=== PATIENT | female | born 1965 | race Two or more races ===

== ENCOUNTER 2018-10-28 14:42 | Inpatient (IN) | payer BC ==
[~2018-10-28] VITALS: Ht 167.6 cm; Wt 132.4 kg
[2018-10-28] MEDS ORDERED: ASPIRIN 325MG EC TABLET PO ONE (16:00)
[2018-10-28] MEDS ORDERED: SODIUM CHLORIDE 0.9% 1,000 ML IV ONE (16:06)
[2018-10-28 16:10] LABS: BASOPHILS % 0.6 % (0.0-2.0); EOSINOPHILS % 0.7 % (0.0-5.0); HEMATOCRIT. 35.9 % (36.0-48.0); HEMOGLOBIN. 11.6 g/dL (12.0-16.0); LYMPHOCYTES % 10.1 % (20.0-50.0); MEAN CORPUSCULAR HEMOGLOBIN 28.4 pg (28.0-32.0); MEAN CORPUSCULAR VOLUME 87.9 fL (81.0-99.0); MEAN PLATELET VOLUME 10.3 fl (7.4-10.4); MONOCYTES % 4.1 % (2.0-8.0); NEUTROPHILS % 84.5 % (40.0-76.0); PLATELET 146 x1000/uL (130-400); RED BLOOD CELL COUNT 4.08 mill/uL (4.2-5.4); RED CELL DISTRIBUTION WIDTH 14.7 % (11.6-14.6)
[2018-10-28 16:12] LABS: CHLORIDE 102 mEq/L (98-107)
[2018-10-28] MEDS ORDERED: IOHEXOL-350 100 ML BOTTLE ONE (17:08)
[2018-10-28] MEDS ORDERED: HEPARIN 5000 UNITS/ML VIAL IV ONE (17:15)
[2018-10-28] MEDS ORDERED: HEPARIN 25,000 UNITS PREMIX 500 ML IV ONE (17:15)
[2018-10-28] MEDS ORDERED: ONDANSETRON HCL 4MG/2ML INJ IV STA (17:18)
[2018-10-28 17:58] LABS: PARTIAL THROMBOPLASTIN TIME 24.5 sec (23.4-31.0); PROTHROMBIN TIME 10.4 sec (9.1-11.1)
[2018-10-28] MEDS ORDERED: HEPARIN 80 UNITS/KG BOLUS IV SCH (18:15)
[2018-10-28] MEDS ORDERED: HEPARIN BOLUS PRN aPTT 37-44 IV ×2 (18:15→18:39)
[2018-10-28] MEDS ORDERED: HEPARIN BOLUS PRN aPTT <36 IV ×2 (18:15→18:38)
[2018-10-28] MEDS ORDERED: HEPARIN 25,000 UNITS PREMIX 500 ML IV SCH ×2 (18:15)
[2018-10-28] MEDS ORDERED: MAGNESIUM/ALUMINUM HYDROXIDE/SIMETHICONE 30ML UDC PO PRN (20:15)
[2018-10-28] MEDS ORDERED: DOCUSATE SODIUM 100MG CAPSULE PO PRN (20:15)
[2018-10-28] MEDS ORDERED: DEXTROSE 50% WATER 50ML SYRINGE IV PRN (20:15)
[2018-10-28] MEDS ORDERED: IPRATROPIUM/ALBUTEROL 0.5-3(2.5)MG/3ML NEB INH PRN (20:15)
[2018-10-28] MEDS ORDERED: ACETAMINOPHEN 325MG TABLET PO PRN (20:15)
[2018-10-28] MEDS ORDERED: ACETAMINOPHEN 650MG SUPP PR PRN (20:15)
[2018-10-28] MEDS ORDERED: ACETAMINOPHEN 650MG/20.3ML UDC GT PRN (20:15)
[2018-10-28] MEDS ORDERED: ONDANSETRON HCL 4MG/2ML INJ IV PRN (20:15)
[2018-10-28] MEDS ORDERED: CLONIDINE 0.1MG TABLET PO PRN (20:15)
[2018-10-28] MEDS ORDERED: GUAIFENESIN 200MG/10ML SUGAR FREE UDC PO PRN (20:15)
[2018-10-28] MEDS ORDERED: HYDROCODONE/ACETAMINOPHEN 5/325MG TABLET PO PRN (20:15)
[2018-10-28] MEDS ORDERED: HYDROCODONE/ACETAMINOPHEN 10/325MG TABLET PO PRN (20:15)
[2018-10-28] MEDS ORDERED: SODIUM CHLORIDE 0.9% INJ 3ML FLUSH IVF SCH (22:00)
[2018-10-28] MEDS: BLOOD SUGAR DIAGNOSTIC STRIP TEST SCH (22:04)
[2018-10-28] MEDS: INSULIN LISPRO 100 UNITS/ML SUBCUT SCH (22:10)
[2018-10-29 00:04] LABS: CREATINE KINASE MB FRACTION 1.7 ng/mL (0.5-3.6)
[2018-10-29] MEDS ORDERED: PIOG30TA70 MT (00:16)
[2018-10-29] MEDS ORDERED: ATOR20TA65 MT (00:16)
[2018-10-29] MEDS ORDERED: METF-416 MT (00:16)
[2018-10-29] MEDS ORDERED: DYZ MT (00:17)
[2018-10-29 00:36] LABS: INR 1.1; PARTIAL THROMBOPLASTIN TIME 47.5 sec (23.4-31.0); PROTHROMBIN TIME 10.7 sec (9.1-11.1)
[2018-10-29 01:46] LABS: CLARITY URINE CLOUDY (CLEAR); COLOR URINE YELLOW (YELLOW); KETONES URINE 1+ (NEGATIVE); LEUKOCYTE ESTERASE URINE NEGATIVE (NEGATIVE); NITRITE URINE NEGATIVE (NEGATIVE); OCCULT BLOOD URINE NEGATIVE (NEGATIVE); PROTEIN URINE TRACE (NEGATIVE); SPECIFIC GRAVITY URINE 1.055 (1.005-1.030)
[2018-10-29 06:19] LABS: EOSINOPHILS % 0.4 % (0.0-5.0); HEMATOCRIT. 34.9 % (36.0-48.0); HEMOGLOBIN. 11.6 g/dL (12.0-16.0); LYMPHOCYTES % 19.1 % (20.0-50.0); MEAN CORPUSCULAR HEMOGLOBIN 28.7 pg (28.0-32.0); MEAN CORPUSCULAR VOLUME 86.7 fL (81.0-99.0); MEAN PLATELET VOLUME 10.4 fl (7.4-10.4); MONOCYTES % 5.1 % (2.0-8.0); NEUTROPHILS % 74.4 % (40.0-76.0); PLATELET 143 x1000/uL (130-400); RED BLOOD CELL COUNT 4.03 mill/uL (4.2-5.4); RED CELL DISTRIBUTION WIDTH 14.6 % (11.6-14.6)
[2018-10-29 06:24] LABS: CHLORIDE 105 mEq/L (98-107)
[2018-10-29 06:29] LABS: PARTIAL THROMBOPLASTIN TIME 47.8 sec (23.4-31.0); PROTHROMBIN TIME 10.5 sec (9.1-11.1)
[2018-10-29 06:39] LABS: LDL CHOLESTEROL 124 mg/dL (5-100)
[2018-10-29 06:40] LABS: CREATINE KINASE 96 IU/L (26-192)
[2018-10-29 06:41] LABS: HDL CHOLESTEROL 41 mg/dL (40-59)
[2018-10-29 06:43] LABS: CREATINE KINASE MB FRACTION 1.9 ng/mL (0.5-3.6)
[2018-10-29] MEDS: BLOOD SUGAR DIAGNOSTIC STRIP TEST SCH ×3 (10:10→17:42)
[2018-10-29] MEDS: INSULIN LISPRO 100 UNITS/ML SUBCUT SCH ×3 (10:15→18:26)
[2018-10-29] MEDS: APIXABAN 5 MG TABLET PO SCH (17:21)
[2018-10-29 17:47] LABS: T4 FREE 1.62 ng/dL (0.76-1.46)
[2018-10-29 19:44] LABS: CREATINE KINASE MB FRACTION 1.5 ng/mL (0.5-3.6)
[2018-10-29 23:10] LABS: CREATINE KINASE MB FRACTION 1.2 ng/mL (0.5-3.6)
[2018-10-30] MEDS: INSULIN LISPRO 100 UNITS/ML SUBCUT SCH ×3 (07:12→12:47)
[2018-10-30] MEDS: APIXABAN 5 MG TABLET PO SCH (08:00)
[2018-10-30 08:47] LABS: BASOPHILS % 0.8 % (0.0-2.0); EOSINOPHILS % 2.4 % (0.0-5.0); HEMATOCRIT. 35.5 % (36.0-48.0); HEMOGLOBIN. 11.6 g/dL (12.0-16.0); LYMPHOCYTES % 25.6 % (20.0-50.0); MEAN CORPUSCULAR HEMOGLOBIN 28.7 pg (28.0-32.0); MEAN CORPUSCULAR VOLUME 87.8 fL (81.0-99.0); MEAN PLATELET VOLUME 10.6 fl (7.4-10.4); NEUTROPHILS % 65.2 % (40.0-76.0); PLATELET 126 x1000/uL (130-400); RED BLOOD CELL COUNT 4.05 mill/uL (4.2-5.4); RED CELL DISTRIBUTION WIDTH 14.7 % (11.6-14.6)
[2018-10-30 08:48] LABS: CHLORIDE 104 mEq/L (98-107)
[2018-10-30 09:26] LABS: INR 1.1; PROTHROMBIN TIME 10.7 sec (9.1-11.1)
[2018-10-30] MEDS ORDERED: BIOT5000 MT (10:53)
[2018-10-30 11:00] VITALS: BP 147/86
[2018-10-30] MEDS: BLOOD SUGAR DIAGNOSTIC STRIP TEST SCH (11:45)
[2018-10-30 12:00] VITALS: BP 147/86
[2018-10-30] MEDS ORDERED: APIX5TAB PO (14:44)
[2018-10-30 15:33] VITALS: BP 147/86
[2018-10-30 16:00] VITALS: BP 129/77
== END 2018-10-30 19:00 | disposition home or self-care (01) | DRG 175 ==
LOC: ER 14:42 → EDBEDREQ 17:15 → EDBEDREQSVC 17:31 → 5WST 10-29 17:26 → EDBEDREQSVC 10-30 08:04 → ENRESERV 10-30 10:04
PROVIDERS: ADMIT Family Medicine; ATTEND Family Medicine
DX: I26.99 Other pulmonary embolism without acute cor pulmonale (principal); J96.01 Acute respiratory failure with hypoxia; E43 Unspecified severe protein-calorie malnutrition; I82.433 Acute embolism and thrombosis of popliteal vein, bilateral; Z68.42 Body mass index [BMI] 45.0-49.9, adult; E11.65 Type 2 diabetes mellitus with hyperglycemia; E66.01 Morbid (severe) obesity due to excess calories; E78.00 Pure hypercholesterolemia, unspecified; E78.5 Hyperlipidemia, unspecified; I10 Essential (primary) hypertension; R55 Syncope and collapse; E87.6 Hypokalemia; F17.200 Nicotine dependence, unspecified, uncomplicated; Z85.42 Personal history of malignant neoplasm of other parts of uterus; Z90.710 Acquired absence of both cervix and uterus; Z98.891 History of uterine scar from previous surgery; Z79.899 Other long term (current) drug therapy
CPT/HCPCS: 36415; 71045; 71275; 80061; 82550; 82553; 82962; 83036; 83880; 84439; 84443; 84484; 85379; 93005; 93306; 93970; 96374; 96375; 97162; 99284; 99291; J1644; J1815; J2405; Q9967